=== PATIENT | female | born 1985 | race African-American/Black ===

== ENCOUNTER 2017-01-22 15:49 | Emergency (ER) | payer MEDICAID ==
[~2017-01-22] VITALS: Ht 160 cm; Wt 110.0 kg
[2017-01-22] MEDS ORDERED: BACITRACIN ZINC OINT UDPKT TOP ONE (19:00)
[2017-01-22] MEDS ORDERED: LIDOCAINE HCL 1%/EPI 1:200,000 30 ML VIAL MC ONE (19:00)
[2017-01-22 22:15] VITALS: BP 138/90
[2017-01-22] MEDS ORDERED: TETANUS, DIPHTHERIA, PERTUSSIS VAC/PF 0.5ML (>7YR OLD) IM ONE (22:15)
== END 2017-01-22 22:20 | disposition home or self-care (01) ==
LOC: ER 16:57
DX: S51.811A Laceration without foreign body of right forearm, initial encounter (principal); W25.XXXA Contact with sharp glass, initial encounter; Y93.89 Activity, other specified; Y92.89 Other specified places as the place of occurrence of the external cause; Z23 Encounter for immunization; I10 Essential (primary) hypertension
CPT/HCPCS: 12006; 73090; 90471; 90715; 99284

== ENCOUNTER 2017-01-23 18:05 | Emergency (ER) | payer MEDICAID ==
[~2017-01-23] VITALS: Ht 160 cm; Wt 116.0 kg
[2017-01-24] MEDS: BACITRACIN ZINC OINT UDPKT TOP ONE (00:15)
[2017-01-24 00:25] VITALS: BP 117/72
== END 2017-01-24 00:33 | disposition home or self-care (01) ==
LOC: ER 18:05
DX: S51.811D Laceration without foreign body of right forearm, subsequent encounter (principal)
CPT/HCPCS: 99281; 99282

== ENCOUNTER 2017-02-04 17:17 | Emergency (ER) | payer MEDICAID ==
[~2017-02-04] VITALS: Ht 160 cm; Wt 114.0 kg
[2017-02-04 22:01] VITALS: BP 125/77
== END 2017-02-04 22:00 | disposition home or self-care (01) ==
LOC: ER 17:18
DX: Z48.02 Encounter for removal of sutures (principal); Z98.890 Other specified postprocedural states
CPT/HCPCS: 99283; Z7610